=== PATIENT | male | born 1975 | race Caucasian/White ===

== ENCOUNTER → 2018-01-19 | Outpatient (CLI) | payer OTHER ==
[~2018-01-19] MED LIST: REGADENOSON 0.4 MG/5 ML SYR IV ONE
--- NOTE | 2018-01-19 18:31 | Cardiology Report ---
DATE OF STUDY: January 19, 2018 NUCLEAR GATED MYOCARDIAL PERFUSION SCAN Nuclear gated myocardial perfusion scan performed as per protocol at nuclear medicine lab at [facility]. The stress test is supervised by Dr. Denny Fried. Lexiscan injected 0.4 mg intravenously as stress agent. Myoview injected 10.8 MCi for resting protocol and 33 mCi for stress protocol. I read only the nuclear part of the stress test. IMPRESSION: Normal nuclear stress test. No evidence of ischemia or scar noted. Left ventricular ejection fraction 60%. Normal study. Job#: [id number]
== END ==
LOC: NM 08:54
PROVIDERS: ATTEND Internal Medicine Cardiovascular Disease
DX: R07.9 Chest pain, unspecified (principal)
CPT/HCPCS: 78452; 93017; A9502; J2785